=== PATIENT | male | born 1975 | race Caucasian/White ===

== ENCOUNTER 2016-10-21 15:40 | Emergency (ER) | payer SELFPAY ==
[~2016-10-21] VITALS: Ht 170.2 cm; Wt 69.6 kg
[2016-10-21] MEDS ORDERED: DEXAMETHASONE 4 MG TABLET PO STA (15:51)
[2016-10-21 16:29] LABS: ASPARTATE AMINO TRANSFERASE 93 U/L (15-37); BLOOD UREA NITROGEN 11 mg/dL (7-18)
[2016-10-21] MEDS ORDERED: DEXAMETHASONE 4 MG TABLET ONE ×2 (16:49→16:54)
[2016-10-21 16:54] VITALS: BP 136/59
[2016-10-21] MEDS ORDERED: DEXAMETHASONE 4 MG TABLET PO ONE (17:30)
== END 2016-10-21 17:37 | disposition home or self-care (01) ==
LOC: ED 17:31
DX: J20.8 Acute bronchitis due to other specified organisms (principal); F17.200 Nicotine dependence, unspecified, uncomplicated
CPT/HCPCS: 36415; 71020; 80053; 85025; 93005; 99285